=== PATIENT | male | born 1970 | race Caucasian/White ===

== ENCOUNTER → 2019-01-04 16:38 | Outpatient (CLI) | payer OTHER, SELFPAY ==
--- NOTE | 2019-01-04 | DI.RAD.S_ITS ---
PROCEDURE: XR LUMBAR SPINE 2-3V INDICATIONS: LUMBAR BACK PAIN TECHNIQUE: 3 views of the lumbar spine were acquired. COMPARISON: None. FINDINGS: Bones: 5 [id number] vertebrae are present. Vestigial 12th ribs noted. There is normal bony alignment. No vertebral body compression fractures. No suspicious bony lesions. Mild multilevel degenerative changes. Soft tissues: Overlying bowel gas pattern is normal. No suspicious soft tissue calcifications. IMPRESSION: Mild multilevel degenerative disc disease. Dictated by: Griselda Johnston MD, PhD on 01/04/2019 at 17:41 Approved by: Griselda Johnston MD, PhD on 01/04/2019 at 17:42
--- NOTE | 2019-01-04 | DI.RAD.S_ITS ---
PROCEDURE: XR THORACIC SPINE 2V INDICATIONS: THORASIC BACK PAIN TECHNIQUE: 2 views of the thoracic spine were acquired. COMPARISON: None. FINDINGS: Bones: No fractures or dislocations. No suspicious bony lesions. 12 pairs of ribs are noted, and appear intact where visualized. Mild multilevel degenerative disc disease. Soft tissues: No paravertebral stripe thickening. IMPRESSION: Mild multilevel degenerative changes. Dictated by: Griselda Johnston MD, PhD on 01/04/2019 at 17:41 Approved by: Griselda Johnston MD, PhD on 01/04/2019 at 17:41
== END ==
PROVIDERS: Family Provider Family Medicine; Visit Provider Family Medicine
DX: M54.5 Low back pain (principal); M51.36 Other intervertebral disc degeneration, lumbar region; M51.34 Other intervertebral disc degeneration, thoracic region
CPT/HCPCS: 72070; 72100

== ENCOUNTER → 2021-03-16 13:13 | Outpatient (CLI) | payer OTHER, SELFPAY ==
[2021-03-16 15:37] LABS: COVID19 -Nasal RAPID Negative (Negative)
== END ==
PROVIDERS: Family Provider Family Medicine; Visit Provider Physician Assistant
DX: R50.9 Fever, unspecified (principal); Z20.822 Contact with and (suspected) exposure to COVID-19
CPT/HCPCS: 87635

== ENCOUNTER → 2021-06-15 11:58 | Outpatient (CLI) | payer OTHER, SELFPAY ==
--- NOTE | 2021-06-15 12:02 | DI.RAD.S_ITS ---
PROCEDURE: XR CERVICAL SPINE 2V OR 3V INDICATIONS: PARESTHESIA RT ARM TECHNIQUE: 3 view(s) of the cervical spine were acquired. COMPARISON: None. FINDINGS: Bones: No fractures or dislocations to the T1 level. The lateral masses of C1 appear intact on the odontoid view. No suspicious bony lesions. Disc space narrowing, facet and anterior osteophytes noted in the mid cervical spine Soft tissues: No prevertebral soft tissue swelling. IMPRESSION: [id number]-[id number] degenerative disc disease and arthropathy in the mid cervical spine Approved by: Koffi Smith M.D. on 06/15/2021 at 12:55
== END ==
PROVIDERS: Family Provider Family Medicine; Referring Provider Family Medicine; Visit Provider Family Medicine
DX: R20.2 Paresthesia of skin (principal); M47.812 Spondylosis without myelopathy or radiculopathy, cervical region; M50.30 Other cervical disc degeneration, unspecified cervical region
CPT/HCPCS: 72040

== ENCOUNTER → 2021-07-30 09:59 | Outpatient (CLI) | payer OTHER, SELFPAY | PROVIDERS: Family Provider Family Medicine; PCP Family Medicine; Referring Provider Family Medicine; Visit Provider Family Medicine | DX: M54.12 Radiculopathy, cervical region (principal); M54.2 Cervicalgia | CPT/HCPCS: 95886; 95909 ==

== ENCOUNTER → 2022-09-02 12:05 | Outpatient (CLI) | payer OTHER, SELFPAY ==
[2022-09-03 18:55] LABS: HIV 1 & 2 Ab/Ag 4th Gen Combo NEGATIVE (NEGATIVE); Hep C Virus Ab w/Reflex Quant NEGATIVE s/c (NEGATIVE); Hepatitis B Surface Antigen NEGATIVE s/c (NEGATIVE)
[2022-09-04 04:25] LABS: HSV 2 IGG AB < 0.91 index (0.00-0.90); HSV1IGG < 0.91 index (0.00-0.90); RPR Screen Non Reactive (Non Reactive)
== END ==
PROVIDERS: Family Provider Family Medicine; PCP Family Medicine; Referring Provider Nurse Practitioner Family; Visit Provider Nurse Practitioner Family
DX: Z71.1 Person with feared health complaint in whom no diagnosis is made (principal)
CPT/HCPCS: 36415; 86592; 86695; 86696; 86803; 87340; 87389; 87491; 87591

== ENCOUNTER 2024-03-13 19:52 | Emergency (ER) | payer OTHER, SELFPAY ==
[2024-03-13 19:55] VITALS: BP 130/98; PULSE 90; RESP 20; TEMP 37.2; O2SAT 99; BMI 22.4
--- NOTE | 2024-03-13 20:00 | DI.RAD.S_ITS ---
PROCEDURE: XR ANKLE RT MIN 3V INDICATIONS: fall/injury/pain TECHNIQUE: 3 views of the ankle were acquired. COMPARISON: None. FINDINGS: Bones: No fractures or dislocations. Ankle mortise is normally aligned. No suspicious bony lesions. Soft tissues: Moderate tibiotalar joint effusion. Achilles tendon appears normal. IMPRESSION: No acute bony abnormality. Moderate joint effusion. Internal derangement not excluded. Dictated by: Ashkan Orozco M.D. on 03/13/2024 at 21:38 Approved by: Ashkan Orozco M.D. on 03/13/2024 at 21:39
--- NOTE | 2024-03-13 20:00 | DI.RAD.S_ITS ---
PROCEDURE: XR TIBIA FUBULA RT 2V INDICATIONS: fall/injury/pain TECHNIQUE: 2 views of the tibia and fibula were acquired. COMPARISON: None. FINDINGS: Bones: Comminuted, mildly displaced fracture the mid fibular shaft. Soft tissues: No suspicious soft tissue calcifications or masses. IMPRESSION: Comminuted, mildly displaced fracture of the mid fibular shaft. Dictated by: Ashkan Orozco M.D. on 03/13/2024 at 21:39 Approved by: Ashkan Orozco M.D. on 03/13/2024 at 21:39
[2024-03-13 23:40] VITALS: BP 131/76; PULSE 76; RESP 20; O2SAT 98
--- NOTE | 2024-03-14 01:47 | ED_ITS ---
HPI - Extremity Injury (Lower) General Chief Complaint: Extremity Injury, Lower Stated Complaint: Fall, Rt leg injury, hit head wearing helmet Time Seen by Provider: 03/14/24 01:41 Source: patient Mode of arrival: Wheelchair History of Present Illness HPI Narrative: 53-year-old male was in line roller-skating proximally 7:00 p.m. last night, fell to the side, struck head wearing a helmet, no LOC, no headache, had pain to right ankle with swelling, also pain to lateral aspect of the right foreleg. No other injuries. He denies pain to his head, face, anterior neck, posterior neck, upper back, lower back, chest, abdomen, pelvis. He does not have pain in his left leg. He does not have pain or swelling to his arms right or left. He does not have pain to his right toes, or distal foot. He does have right ankle pain with swelling. And pain in the lateral aspect of his right foreleg. But not any pain to the right knee with thigh or hip. He denies use of blood thinner medications. Related Data Allergies Allergy/AdvReac Type Severity Reaction Status Date / Time No Known Drug Allergies Allergy Unverified 09/02/22 11:51 Review of Systems Review of Systems Narrative: per HPI Patient History Social History Smoking Status: Never smoker Smoking Status: Never smoker Substance Use Type: does not use Exam Narrative Exam Narrative: GENERAL: Well-developed patient, in mild distress. HEAD: Atraumatic. Normocephalic. EYES: Pupils equal round and reactive. Extraocular motions intact. No scleral icterus. No injection or drainage. ENT: Nose without bleeding, purulent drainage. Throat without erythema, tonsillar hypertrophy or exudate. Airway patent. NECK: Trachea midline. Non tender CARDIOVASCULAR: Regular rate and rhythm without murmurs, gallops, or rubs. RESPIRATORY: Clear to auscultation. Breath sounds equal bilaterally. No wheezes, rales, or rhonchi. GASTROINTESTINAL: Abdomen soft, non-tender, nondistended. EXTREMITIES: Swelling right ankle both medial and lateral joint line area, no gross deformity however. Good right DP pulse with good perfusion toes. Some tenderness mid lateral foreleg. No posterior foreleg tenderness. No tenderness around the right knee medial or lateral joint lines, no obvious knee effusion. No tenderness to the right thigh or hip. No obvious injuries to upper extremities, nor to the left lower extremity. BACK: Nontender without deformity or crepitance. No flank tenderness. NEURO: AOx3. SKIN: No rash or erythema of visible areas Initial Vital Signs Initial Vital Signs: Vital Signs Temperature 99 F 03/13/24 19:55 Pulse Rate 90 03/13/24 19:55 Respiratory Rate 20 03/13/24 19:55 Blood Pressure 130/98 H 03/13/24 19:55 Pulse Oximetry 99 03/13/24 19:55 Oxygen Delivery Method Room Air 03/13/24 19:55 Course Orders Ordered: Discontinued Medications Acetaminophen (Acetaminophen 325 Mg Tablet) 650 mg PO NOW ONE Stop: 03/14/24 01:54 Last Admin: 03/14/24 02:08 Dose: 650 mg Documented By: MACK Tramadol HCl (Tramadol 50 Mg Prepack) 1 bottle MISC DIRECTED ONE Stop: 03/14/24 01:58 Last Admin: 03/14/24 02:08 Dose: 1 bottle Documented By: MACK Vital Signs Vital signs: Vital Signs - 8 hr 03/13/24 19:55 03/13/24 23:40 Temperature 99 F Pulse Rate 90 76 Respiratory Rate 20 20 Blood Pressure 130/98 H 131/76 Pulse Oximetry 99 98 Oxygen Delivery Method Room Air Room Air MDM - Extremity Injury (Lower) Differential Diagnosis Differential diagnosis: Likely ankle sprain and strain, ankle fracture and other (foreleg fracture, contusion, hematoma) Imaging Data Extremity x-ray #1: Radiologist's Impression: [place] [address] XRay Report Signed Patient: Rubin Hinojosa MR#: [id number] : 1970 Acct:[id number] Age/Sex: 53 / M Date of Service: 03/13/24 Loc: ED Accession Number: [id number] Procedure: XR tibia fibula RT 2V Ordering Provider: Efraín Mcdonald MD PROCEDURE: XR TIBIA FUBULA RT 2V INDICATIONS: fall/injury/pain TECHNIQUE: 2 views of the tibia and fibula were acquired. COMPARISON: None. FINDINGS: Bones: Comminuted, mildly displaced fracture the mid fibular shaft. Soft tissues: No suspicious soft tissue calcifications or masses. IMPRESSION: Comminuted, mildly displaced fracture of the mid fibular shaft. Dictated by: Ashkan Orozco M.D. on 03/13/2024 at 21:39 Approved by: Ashkan Orozco M.D. on 03/13/2024 at 21:39 Extremity x-ray #2: Radiologist's Impression: [address] [address] XRay Report Signed Patient: Rubin Hinojosa MR#: [id number] : 1970 Acct:[id number] Age/Sex: 53 / M Date of Service: 03/13/24 Loc: ED Accession Number: [id number] Procedure: XR ankle RT min 3V Ordering Provider: Efraín Mcdonald MD PROCEDURE: XR ANKLE RT MIN 3V INDICATIONS: fall/injury/pain TECHNIQUE: 3 views of the ankle were acquired. COMPARISON: None. FINDINGS: Bones: No fractures or dislocations. Ankle mortise is normally aligned. No suspicious bony lesions. Soft tissues: Moderate tibiotalar joint effusion. Achilles tendon appears normal. IMPRESSION: No acute bony abnormality. Moderate joint effusion. Internal derangement not excluded. Dictated by: Ashkan Orozco M.D. on 03/13/2024 at 21:38 Approved by: Ashkan Orozco M.D. on 03/13/2024 at 21:39 MDM Narrative Medical decision making narrative: In-line skating fall with helmet, no suspected significant head injury. Ankle pain/swelling, lateral foreleg pain some swelling. Doubt any foreleg compartment syndrome at this time. XRay showed no fracture/dislocation ankle. XRay showed comminuted midshaft fibula fracture. Suspect fibula injury from edge of skate boot with twisting, vs some direct blow, also consider [place] fracture with ankle twist but usually higher on fibula and less likely comminuted. Posterior short leg splint, with U-splint support ankle further, crutches and non weight bearing. Follow-up orthopedic surgery advised, might need fibula surgery, could have unstable ankle ligamentous injuries. Declined pain meds for splinting except for PO Tylenol. Given contact info for on-call orthopedic surgery Dr Harrison. Discharged home. Return precautions discussed. Discharge Plan Departure Patient Disposition: Home Clinical Impression: Closed fibular fracture, Right ankle strain Activity Restrictions/Additional Instructions: Rollerblading injury last night 7:00 p.m., with fall, left right ankle pain and right lateral foreleg pain. X-rays of the tibia and fibula foreleg along with the ankle showed fracture to the mid portion of the fibula smaller bone of the foreleg. There was no actual obvious fractures described within the ankle joint itself, though there was some soft tissue swelling. The tibia bone seemed to be intact, per radiologist's reports. It is possible you had tremendous pressure from severe ankle twisting to cause the fibula fracture, or it is possible that your foreleg torqued over the edge of the top of your roller blade skate. The fibula unfortunately is fractured in multiple fragments, might need surgical repair for stabilization. You were placed in a splint in the back of the foreleg to foot capital L-shape splint, along with U-shape [id number] support for the ankle additionally. Use crutches. Do not put weight on the right leg. Follow up with Orthopedic surgery, contact information provided. You declined any pain medication besides Tylenol in the emergency department. Tramadol home pack prescribed to use if you need it. Otherwise consider use of naproxen and Tylenol that you had been taking for pain control as needed. Follow up with Orthopedic surgery, call office later this morning for close follow up, possible surgical planning. Return to this/nearest emergency department for any change worsening symptoms or any concerns prior Referrals: Chandni Harrison MD [Physician] - Tiffanie Mcdowell MD [Primary Care Provider] - Stand Alone Forms: Patient Portal/API
[2024-03-14] MEDS: TRAMADOL 50 MG PREPACK 1 BOTTLE MISC (02:08)
[2024-03-14] MEDS: ACETAMINOPHEN 325 MG TABLET 650 MG PO (02:08)
[2024-03-14 02:43] VITALS: BP 130/85; PULSE 88; RESP 18; O2SAT 99
== END 2024-03-14 02:48 | disposition home or self-care (01) ==
PROVIDERS: Emergency Provider Emergency Medicine; Family Provider Family Medicine; PCP Family Medicine
DX: S82.401A Unspecified fracture of shaft of right fibula, initial encounter for closed fracture (principal); S93.401A Sprain of unspecified ligament of right ankle, initial encounter; W18.30XA Fall on same level, unspecified, initial encounter; Y93.51 Activity, roller skating (inline) and skateboarding
CPT/HCPCS: 29505; 73590; 73610; 99283

== ENCOUNTER 2024-03-21 08:39 | Day surgery (SDC) | payer OTHER, SELFPAY ==
[2024-03-16 09:53] VITALS: BMI 22.4
[2024-03-21] VITALS (7 sets, daily range): BP systolic 100–128; BP diastolic 62–74; PULSE 68–86; RESP 10–18; TEMP 36.6–37.2; O2SAT 98–100; BMI 22.4
--- NOTE | 2024-03-21 | DI.RAD.S_ITS ---
PROCEDURE: XR ANKLE RT MIN 3V INDICATIONS: ORIF RIGHT ANKLE TECHNIQUE: 6 low resolution intraoperative fluoroscopic spot films were obtained COMPARISON: [facility], , XR ANKLE RT MIN 3V, 03/13/2024, 20:15. FINDINGS: Intraoperative spot films show intra osseous fixation in progress as well as mid fibular angulated fracture IMPRESSION: Fluoroscopic guidance Approved by: Koffi Smith M.D. on 03/21/2024 at 18:41
[2024-03-21] MEDS: LACTATED RINGERS 1,000 ML 42 ML IV (09:52)
[2024-03-21] MEDS: ACETAMINOPHEN 325 MG TABLET 975 MG PO (09:54)
--- NOTE | 2024-03-21 10:40 | P.OP_ITS ---
Operative Date/Time/Diagnoses Date of procedure: 03/21/24 Time of procedure: 11:00 Pre-op diagnosis: Displaced Maisonneuve fracture right ankle, acute disruption syndesmosis ankle joint, right Post-op diagnosis: same Procedure & Clinicians Procedure: Open reduction internal fixation syndesmosis right ankle CPT code 07266 Same procedure as scheduled: Yes Indications: Patient is a 53-year-old male that sustained a eversion injury to his right ankle while rollerblading he sustained a displaced Maisonneuve fracture. He is indicated for open reduction internal fixation of the syndesmosis to restore ankle alignment reduce the risk of posttraumatic arthritis and prolonged dysfunction. The risks and benefits of the procedure have been discussed with the patient and given the opportunity to ask questions. The risks of surgery include but are not limited to infection, malunion, nonunion, persistence of pain, damage to nerves and blood vessels, posttraumatic arthritis, DVT, PE, cardiopulmonary complications and . The patient expressed a thorough understanding of the risks and benefits of surgery and has elected to proceed. Consent was signed . patient was counseled on the importance of smoking cessation. States he will be able to quit. No personal or family history of blood clots. DVT prophylaxis will be aspirin. History and physical update completed within 24 hours of surgery, no changes Surgeon: Namrata Serrano Click Yes if Unassisted: Yes Anesthesia Type: General and Local Operative Notes Findings: Syndesmotic disruption. -medial clear space widening and lateral translation of the talus. Right ankle. Proximal Fibular shaft fracture. Symmetric mortise after syndesmotic fixation. Closure Type: primary Specimen(s): none sent Prosthetic devices, grafts, tissues, transplants, or devices: Arthrex tightrope suture button device x 2 in divergent pattern Blood products transfused: none Tourniquet time (min): 19 Procedure in detail: Patient was seen in the preoperative area the site of surgery was marked this was the right ankle. Informed consent was confirmed. The patient was brought back to the operating room by the anesthesia team positioned supine on operative table. Bony prominences were well padded. A well-padded thigh tourniquet was applied on the operative extremity. The right lower extremity was prepped and draped in standard sterile fashion formal time-out procedure was performed confirming the patient's side and site of surgery administration of appropriate preoperative antibiotic. All were in agreement. Attention turned to the right lower extremity the Esmarch was when needed and the elevated tourniquet was placed to 250 mm of mercury. Attention turned to the right ankle C-arm was brought in and widening of the medial clear space was demonstrated on eversion stress to the ankle. The level of the syndesmosis was marked out on the fibula and a lateral incision at the level of the syndesmosis we made down through the skin subcutaneous tissue to the periosteal exposure of the fibula. Dissection was carefully taken anteriorly with care to protect the superficial peroneal nerve branch to expose the syndesmosis. This was grossly disrupted. Area was cleaned with a rongeur. Thumb pressure was used for syndesmotic reduction and this was provisionally pinned. Next drill for the suture button device was placed across the fibula and tibia for 2 suture button devices in a divergent pattern for maximum fixation instability with flexible fixation. Once these were drilled tetra cortically the suture button device was deployed in the standard fashion and then tightened down. Once provisionally tightened the K-wire holding syndesmotic reduction was removed and final tightening and was completed. C-arm was brought in to check the reduction which was anatomic on the mortise and lateral and AP views. Without widening on eversion or fibular stress. Next the tourniquet was released hemostasis was achieved and the wound was closed with 2- 0 Vicryl 4-0 Monocryl and 3-0 nylon suture. 0.25% Marcaine with epinephrine was injected for local anesthesia. Xeroform gauze and Webril was applied. A well- padded stirrup splint was applied in the standard fashion. Patient was woken from anesthetic and taken to the recovery room in good condition there were no immediate complications from this procedure. Counts were correct. Complications: none Post-operative Condition: stable Disposition: PACU Plan for aftercare: Toe-touch or nonweightbearing on right lower extremity x6 weeks. Aspirin for DVT prophylaxis. A follow up in Orthopedic Clinic in 2 weeks for suture removal and begin early range of motion but maintain nonweightbearing or toe-touch for 6 weeks.
[2024-03-21] MEDS: CEFAZOLIN 2 GM/100 ML PREMIX 100 ML IV (10:55)
--- NOTE | 2024-03-21 11:11 | SUR.OPER ---
Supine on padded OR bed, head on pillow, arms secured on padded arm boards at <90 degrees abduction, legs uncrossed, safety belt at thigh, tape over blanket over lower LEFT LEG. RIGHT LEG PREPPED AND HELD ON FIELD.
[2024-03-21] MEDS: BUPIVACAINE 0.25% (PF) 30 ML, EPINEPHrine 0.15 MG INJ (11:23)
[2024-03-21] MEDS: HYDROMORPHONE 1 MG INJ IV ×2 (11:50→11:56)
--- NOTE | 2024-03-21 11:56 | PM.PREOP ---
Pre-operative Note Interval Note History & Physical reviewed/Exam performed by Physician: Yes Changes to H&P: No H&P completed within 30 days and has changed as indicated here:: H&P update completed prior to surgery. No changes
[2024-03-21] MEDS: OXYCODONE IR 5 MG TABLET PO ×2 (11:57→12:44)
--- NOTE | 2024-03-21 14:28 | SUR.PHASEII ---
Patient states pain is decreasing after pain meds administered. States he prefers to discharge home and refuse the nerve block offered at this time. Leaving via wheelchair to entrance to go home with ride. 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
== END 2024-03-21 14:33 | disposition home or self-care (01) ==
PROVIDERS: Family Provider Family Medicine; PCP Family Medicine; Referring Provider Orthopaedic Surgery Foot and Ankle Surgery; Visit Provider Orthopaedic Surgery Foot and Ankle Surgery
PROC: 0SSF04Z Reposition Right Ankle Joint with Internal Fixation Device, Open Approach (ICD-10-PCS; CPT 27829; principal; 2024-03-21 10:45)
DX: S82.861A Displaced Maisonneuve's fracture of right leg, initial encounter for closed fracture (principal); S93.431A Sprain of tibiofibular ligament of right ankle, initial encounter
CPT/HCPCS: 27829; 73610; 76000; C1713; J0171; J0690; J1100; J1170; J1885; J2250; J2405; J2704; J3010

== ENCOUNTER → 2024-04-02 12:34 | Outpatient (CLI) | payer OTHER, SELFPAY ==
--- NOTE | 2024-04-02 12:37 | DI.RAD.S_ITS ---
PROCEDURE: XR ABDOMEN 3V INDICATIONS: CONSTIPATION TECHNIQUE: One view chest and two views of the abdomen were acquired. COMPARISON: None. FINDINGS: Surgical changes and devices: None. Chest: Lungs are clear. COPD changes. Heart size is normal. No pleural effusions. No pneumoperitoneum. Abdomen: Bowel gas pattern is normal. No suspicious calcifications. Visualized solid organ contours appear normal. Moderate amount of stool within the ascending colon. Bones: No suspicious bony lesions. IMPRESSION: 1. No acute cardiopulmonary process. COPD changes. 2. Moderate amount of stool within the ascending colon. Dictated by: Yossi Fletcher M.D. on 04/02/2024 at 15:58 Approved by: Yossi Fletcher M.D. on 04/02/2024 at 16:04
== END ==
LOC: RAD 12:35
PROVIDERS: Family Provider Family Medicine; PCP Family Medicine; Referring Provider Family Medicine; Visit Provider Family Medicine
DX: K59.03 Drug induced constipation (principal)
CPT/HCPCS: 74021

== ENCOUNTER 2024-11-10 20:42 | Emergency (ER) | payer OTHER, SELFPAY ==
[2024-11-10 20:48] VITALS: BP 114/75; PULSE 111; RESP 18; TEMP 36.7; O2SAT 107; BMI 20.9
--- NOTE | 2024-11-10 20:54 | DI.RAD.S_ITS ---
PROCEDURE: XR ANKLE LT MIN 3V INDICATIONS: rolled ankle while roller skating TECHNIQUE: 3 views of the ankle were acquired. COMPARISON: [facility] [place], [place], XR ANKLE 3 VIEWS WEIGHT BEARING RIGHT, 06/12/2024, 9:53. [facility], [place], XR ANKLE RT MIN 3V, 03/21/2024, 11:16. FINDINGS: Bones: Comminuted minimally displaced distal fibular fracture. Ankle mortise is normally aligned. No suspicious bony lesions. Soft tissues: Lateral effusion. Achilles tendon appears normal. IMPRESSION: Lateral effusion with comminuted minimally displaced distal fibular fracture. Dictated by: Susana Becerra M.D. on 11/10/2024 at 21:28 Approved by: Susana Becerra M.D. on 11/10/2024 at 21:29
[2024-11-10] MEDS: IBUPROFEN 400 MG TABLET 800 MG PO (21:13)
--- NOTE | 2024-11-11 00:09 | ED_ITS ---
HPI - Extremity Injury (Lower) General Chief Complaint: Extremity Injury, Lower Stated Complaint: Fall, lft ankle injury Time Seen by Provider: 11/11/24 00:09 Source: patient Mode of arrival: Ambulatory Limitations: no limitations History of Present Illness HPI Narrative: 54-year-old male arrives with a complaint of left ankle injury obtained while roller-skating and rolling his ankle by inverting it. Patient states has had pain just at the lateral ankle no were else. He states pain is pretty much with weight-bearing. If he was resting with his leg nonweightbearing he was minimal to no pain. He was swelling of the lateral ankle. Denies any other injuries. Denies any numbness, tingling or weakness. Has had the right fibular repaired proximally by Dr. Roberson. Patient denies any other injuries or issues today. No known drug allergies reported. Related Data Home Medications Medication Instructions Recorded Confirmed bupropion HCl 150 mg 24 hr tablet, 150 mg PO DAILY 03/21/24 03/21/24 extended release escitalopram oxalate 5 mg tablet 5 mg PO DAILY 03/21/24 03/21/24 naproxen sodium 220 mg capsule 440 mg PO PRN PRN Pain (Scale 03/21/24 03/21/24 Score 4-6) Previous Rx's Medication Instructions Recorded ondansetron 4 mg disintegrating 4 mg PO Q8H PRN nausea and 03/21/24 tablet vomiting #5 tabs oxycodone 5 mg tablet 5 mg PO Q4H PRN pain #30 tabs 03/21/24 Allergies Allergy/AdvReac Type Severity Reaction Status Date / Time No Known Drug Allergies Allergy Verified 11/10/24 20:48 Review of Systems Review of Systems ROS Unobtainable: All systems reviewed & are unremarkable except as noted in HPI and below Patient History Medical History Tremor Neck pain Low back pain Hematochezia HLD (hyperlipidemia) Anxiety Depression Eczema Hearing loss Social History household members: children Smoking Status: Former smoker alcohol intake: current Smoking Status: Former smoker alcohol intake frequency: holidays/special occasions only Exam Narrative Exam Narrative: GENERAL: Alert and oriented x three, male in mild distress HEENT: Head normocephalic, atraumatic, EOMI, pupils reactive, face symmetric, moist mucous membranes NECK: Supple, full range of motion EXTREMITIES: Normal range of motion, patient has a edema over the left lateral malleoli, he was tenderness over that area, no other bony tenderness of the toes, foot, no tenderness over the medial malleoli, no tenderness of the tibia or proximal fibula. No tenderness of the or hip. Patient has full range of motion. 2+ dorsalis pedis. Sensation throughout. Neurovascularly intact NEUROLOGICAL: Cranial nerves II through XII grossly intact. Moving all extremities SKIN: Warm, dry, no petechiae, no rashes or lesions. Initial Vital Signs Initial Vital Signs: Vital Signs Temperature 98.0 F 11/10/24 20:48 Pulse Rate 111 H 11/10/24 20:48 Respiratory Rate 18 11/10/24 20:48 Blood Pressure 114/75 11/10/24 20:48 Pulse Oximetry 107 H 11/10/24 20:48 Oxygen Delivery Method Room Air 11/10/24 20:48 Course Orders Ordered: ED Orders 11/10/24 20:54 XR ankle LT min 3V Stat Discontinued Medications Hydrocodone Bitart/Acetaminophen (Hydrocodone/Acet 5/325 Prepack) 1 bottle MISC DIRECTED ONE Stop: 11/11/24 00:22 Last Admin: 11/11/24 00:30 Dose: 1 bottle Documented By: LYRIC Ibuprofen (Ibuprofen 400 Mg Tablet) 800 mg PO NOW ONE Stop: 11/10/24 20:59 Last Admin: 11/10/24 21:13 Dose: 800 mg Documented By: TOM Vital Signs Vital signs: Vital Signs - 8 hr 11/10/24 20:48 11/11/24 00:49 Temperature 98.0 F Pulse Rate 111 H 106 H Respiratory Rate 18 16 Blood Pressure 114/75 120/81 Pulse Oximetry 107 H 97 Oxygen Delivery Method Room Air Room Air MDM - Extremity Injury (Lower) MDM Narrative Medical decision making narrative: Left Ankle x-ray shows lateral effusion, comminuted minimally displaced distal fibular fracture ankle mortise normally aligned no suspicious bony lesions. Achilles tendon appears normal. Patient placed in ortho boot, toe-touch weightbear as tolerated with follow up with Orthopedic surgery. Patient has seen Dr. Roberson in the past under like to follow up with her. Discharge Plan Departure Patient Disposition: Home Clinical Impression: Fracture of distal end of fibula Instructions: DI for Ankle Fracture Activity Restrictions/Additional Instructions: Follow up with the orthopedic surgery, please call Tuesday morning to set up a follow up appointment. Contacts included below. You can take ibuprofen and/or acetaminophen as needed for pain. If inadequate for pain you can take Wat[place] 1 tablet every 6 hours as needed. This medication does have acetaminophen in it so do not take more than 3000 mg of acetaminophen in 24 hours. This medication can make you sleepy do not drive, perform hazardous activities or make any major decisions while taking it. This medication will make you constipated please take a stool softener once to twice daily until stools are soft and regular. You may toe-touch weightbear as tolerated. Splint Care: Keep splint clean and dry. Elevated affected body part to decrease swelling. OK to use ice pack on the affected body part. Use for 15-20 minutes each time, for 5-6x per day. If you develop worsening pain, numbness, tingling, discoloration of the affected body part, loosen the splint by loosening the BRIE wrap, and either see your doctor for an urgent re-assessment, or return to the Emergency Department. Return to the Emergency Department for any new or worsening symptoms. Prescriptions: No Action bupropion HCl 150 mg tablet extended release 24 hr 150 mg PO DAILY escitalopram oxalate 5 mg tablet 5 mg PO DAILY naproxen sodium 220 mg Capsule 440 mg PO PRN PRN (Reason: Pain (Scale Score 4-6)) oxycodone 5 mg tablet 5 mg PO Q4H PRN (Reason: pain) Qty: 30 0RF Rx Instructions: postop exempt ondansetron 4 mg tablet,disintegrating 4 mg PO Q8H PRN (Reason: nausea and vomiting) Qty: 5 0RF Referrals: Namrata Serrano MD [Physician] - Tiffanie Mcdowell MD [Primary Care Provider] - Stand Alone Forms: Patient Portal/API/Survey
[2024-11-11] MEDS: HYDROCODONE/ACET 5/325 PREPACK 1 BOTTLE MISC (00:30)
--- NOTE | 2024-11-11 00:47 | PC.NURSE ---
Educated pt on care and use of ortho boot and crutches. Crutches set at 6', and handles placed on top notch.
[2024-11-11 00:49] VITALS: BP 120/81; PULSE 106; RESP 16; O2SAT 97
== END 2024-11-11 00:50 | disposition home or self-care (01) ==
PROVIDERS: Emergency Provider Emergency Medicine; Family Provider Family Medicine; PCP Family Medicine
DX: S82.492A Other fracture of shaft of left fibula, initial encounter for closed fracture (principal); X50.1XXA Overexertion from prolonged static or awkward postures, initial encounter; Y93.51 Activity, roller skating (inline) and skateboarding
CPT/HCPCS: 29580; 73610; 99283